=== PATIENT | male | born 1965 | race Caucasian/White ===

== ENCOUNTER 2016-11-24 13:52 | Emergency (ER) | payer MEDICARE, MEDICAID ==
[~2016-11-24] VITALS: Ht 182.9 cm; Wt 116.6 kg
[~2016-11-24 13:52] MED LIST: 0.92DISP2 IV; AZIT250T6 PO; BLOO-1207 MC; CEFT1FRO2 IV; DEXT4TAB PO; ENOX40DI3 SQ; FAMO20VI3 IV; HALO5VIA2 IJ; IPRA3AMP NEB; OLAN5TAB9 PO
[2016-11-24 14:15] VITALS: BP 127/74
--- NOTE | 2016-11-24 14:43 | PHYS DOC ---
Past Medical History Past Medical History: Asthma, Bipolar, Other Additional Past Medical Histor: "MILD MENTAL RETARDATION", dysphagia Past Surgical History: Other Additional Past Surgical Histo: cleft lip/palat, tracheotomy(taken down), feeding tube placement Alcohol Use: None Drug Use: Other Adult General Chief Complaint Chief Complaint: GTUBE REPLACEMENT/MALFUNCTION HPI HPI 51-year-old male presenting to the emergency department desiring for his feeding tube to be taken out. He was recently discharged home from [facility] after being transferred from our hospital. He is unsure who placed his GI tube however after electronic medical record review the G-tube was placed by Dr. Sinha here at our hospital on October 022016. He denies any pain. Onset greater than one week. Location GI tract. Duration intermittent. No alleviating factors. Review of systems is negative for chest pain shortness of breath nausea vomiting diarrhea. Otherwise he is feeling better and denies any other complaints. All other review of systems is negative unless otherwise noted in history of present illness. Review of Systems Review of Systems SEE ABOVE. Allergies Allergies Allergies Coded Allergies Type Severity Reaction Last Updated Verified ibuprofen Allergy Intermediate 11/24/16 Yes Physical Exam Physical Exam Constitutional: Well developed, well nourished, no acute distress, non-toxic appearance. [] HENT: Normocephalic, atraumatic, bilateral external ears normal, oropharynx moist, no oral exudates, nose normal. [] Eyes: PERRLA, EOMI, conjunctiva normal, no discharge. Neck: Normal range of motion, no tenderness, supple, no stridor. [] Cardiovascular:Heart rate regular rhythm, no murmur Lungs & Thorax: Bilateral breath sounds clear to auscultation [] Abdomen: Abdomen is soft and nontender. G-tube in place without any evidence of overlying cellulitis. Skin: Warm, dry, no erythema, no rash. [] Back: No tenderness, no CVA tenderness. Extremities: No tenderness, no cyanosis, no clubbing, ROM intact, no edema. [] Neurologic: Alert and oriented X 3, normal motor function, normal sensory function, no focal deficits noted. [] Psychologic: Affect normal, judgement normal, mood normal. [] Current Patient Data Vital Signs Vital Signs Date Time Temp Pulse Resp B/P Pulse Ox O2 Delivery O2 Flow Rate FiO2 3/10/17 14:15 97.6 104 22 95 Room Air 97.6 EKG EKG [] Radiology/Procedures Radiology/Procedures [] Course & Med Decision Making Course & Med Decision Making Pertinent Labs and Imaging studies reviewed. (See chart for details) [] 51-year-old male presenting to the emergency department desiring of his G- tube removed. I gave him information for Dr. Sinha's office to schedule appointment. Otherwise no acute Location noted. Patient was subsequent discharged home in stable condition. Dragon Disclaimer Dragon Disclaimer This electronic medical record was generated, in whole or in part, using a voice recognition dictation system. Departure Departure Impression: Primary Impression: Gastrointestinal tube present Disposition: HOME, SELF-CARE Condition: STABLE Referrals: NO PCP (PCP) ELI SINHA MD Patient Instructions: Care of a Feeding Tube Site Additional Instructions: Follow-up with Dr. Sinha. You may call [phone] to make an appointment. Thank you for allowing us to participate in your care today. Followup as above. If you do not have a primary care provider you can ask for a list of our primary care providers. Return to the emergency department you have any new or concerning findings. This should be evaluated by the primary care physician and any necessary consulting services for continued management within a few days after discharge. Return to emergency room if you have any new or concerning symptoms including but not limited to fever, chills, nausea, vomiting, intractable pain, any new rashes, chest pain, shortness of air, uncontrolled bleeding, difficulty breathing, and/or vision loss. SONU DAILY MD Nov 24, 2016 14:43
== END 2016-11-24 14:49 | disposition home or self-care (01) ==
LOC: ER 13:52
DX: Z93.1 Gastrostomy status (principal); J45.909 Unspecified asthma, uncomplicated; F31.9 Bipolar disorder, unspecified; F70 Mild intellectual disabilities; Z88.6 Allergy status to analgesic agent
CPT/HCPCS: 99281

== ENCOUNTER → 2016-12-19 | Day surgery (SDC) | payer MEDICARE, MEDICAID ==
[~2016-12-19] MED LIST changes: +FENTANYL PF 100 MCG/2 ML VIAL. IV PRN; +HYDROMORPHONE 2 MG/ML VIAL. IV PRN; +IV RINGERS,LACTATED 1000ML 1,000 ML IV SCH; +LEVE500T6 PO; +LIDOCAINE 1% 1 ML SYRINGE. ID PRN; +LIDOCAINE 2% PF Vial for OR 5 ML VIAL. ONE; +MORPHINE SULFATE 2 MG/ML DISP.SYRIN. IV PRN; +OMEP20CA9 PO; +ONDANSETRON PF 4 MG/2 ML VIAL. IV PRN; +PROCHLORPERAZINE 10 MG/2 ML VIAL. IV PRN; +PROPOFOL 0 ML IV ONE; +PROPOFOL 20 ML IV ONE; +QUET200T PO
--- NOTE | 2016-12-19 08:18 | PDOC1 ---
HISTORY & PHYSICAL H&P Jorge Alberto Matute [id number] 1965 11/29/2016 03:20 PM 09/[address] [facility] OUR PATIENTS COME FIRST [address] [place] [address]. [phone] Patient: Jorge Alberto Matute Date of : 1965 Date: 11/29/2016 3:20 PM Visit Type: Office Visit This 51 year old male presents for Peg-tube removal. History of Present Illness: 1. Peg-tube removal Patient came to the office for evaluation for removal of PEG tube. Patient has been eating well and has not used the PEG tube for more then 2 weeks. Patient requested the tube to be removed. INTAKE COMMENTS: Intake Comments: Nurse Note: the pt is here today to discuss the removal of his peg-tube that was placed in September, the pt hasn't used the feeding tube in about 2.5 weeks. He states that he is eating and swallowing okay. PROBLEM LIST: Problem Description Onset Date Chronic Notes Bipolar 1 disorder 11/29/2016 Y PAST MEDICAL/SURGICAL HISTORY (Detailed) Disease/disorder Onset Date Management Date Comments Cleft pallet repair Asthma COPD Medications (Active): Started Medication Directions Instruction Stopped haloperidol 0.5 mg tablet take 1 tablet by oral route 2 times every day levetiracetam 500 mg tablet take 1 tablet by oral route 2 times every day quetiapine 200 mg tablet take 1 tablet by oral route 2 times every day quetiapine 50 mg tablet take 1 tablet by oral route 2 times every bedtime valproic acid (as sodium salt) 250 mg/5 mL oral solution take 5 milliliter by oral route every 8 hours zolpidem 5 mg tablet take 1 Tablet by oral route every day at bedtime Allergies: Ingredient Reaction Medication Name Comment IBUPROFEN REVIEW OF SYSTEMS System Neg/Pos Details Constitutional Negative Chills, fever, malaise and weight loss. ENMT Negative Sore throat. Eyes Negative Double vision. Respiratory Negative Dyspnea and wheezing. Cardio Negative Chest pain and irregular heartbeat/palpitations. GI Positive See HPI. GI Negative See HPI. Negative Dysuria and hematuria. Endocrine Negative Cold intolerance and heat intolerance. Psych Negative Anxiety. Integumentary Negative Hives and rash. MS Negative Joint pain. Delta/Lymph Negative Easy bleeding and easy bruising. Allergic/Immuno Negative Food allergies. VITAL SIGNS Time BP mm/Hg Pulse /min Resp /min Temp F Ht ft Ht in Ht cm Wt lb Wt kg BMI kg/ m2 BSA m2 O2 Sat% 3:25 PM 138/74 115 97.9 5.0 8.00 172.72 253.20 114.850 38.50 95 Time Measured by 3:25 PM Jinny Wright PHYSICAL EXAM: Exam Findings Details Constitutional Normal Well developed. Eyes Normal Conjunctiva - Right: Normal, Left: Normal. Sclera - Right: Normal, Left: Normal. Nasopharynx Normal Lips/teeth/gums - Normal. Neck Exam Normal Inspection - Normal. Thyroid gland - Normal. Respiratory Normal Inspection - Normal. Auscultation - Normal. Cardiovascular Normal Regular rate and rhythm. No murmurs, gallops, or rubs. Vascular Normal Pulses - Carotids: Normal, Femoral: Normal, Dorsalis pedis: Normal. Abdomen Normal Inspection - Normal. Anterior palpation - No guarding. No abdominal tenderness. No hepatic enlargement. No splenic enlargement. No hernia. No ascites. Skin Normal Inspection - Normal. Extremity Normal No edema. Psychiatric * Oriented to time, place, person and situation. Psychiatric Normal Appropriate mood and effect. The patient was checked out at 3:26 PM by Jinny Wright. Assessment/Plan # Detail Type Description 1. Assessment Malfunction of gastrostomy tube (K94.23). Patient Plan schedule EGD at [facility] Electronically signed by: Eli Vogt MD 11/29/2016 03:30 PM Document generated by: Eli Vogt 11/29/2016 03:30 PM Donna Redding MD, Family Practice; Jorge Alberto Costa MD Internal Medicine; Onelia Barajas MD, Internal Medicine; Marty Vogt MD Internal Medicine; Eli oVgt MD, Gastroenterology; Ryan Varela MD, Rheumatology, S. Gregory Wells, Physical Medicine/Rehab Freya Hawkins APRN ------ 12/19/16 Patient seen and examined. No change in H&P ELI VOGT MD Dec 19, 2016 08:18
--- NOTE | 2016-12-19 09:25 | PDOC4 ---
GI OP Report - Dr. Sinha Date/Time DATE: 12/19/16 TIME: 09:24 Attending Physician Hal Sinha MD Referring Physician Indications Remove PEG tube (no longer needed) Pre-Op See the Anesthesia note for documentation of the administered medications Procedures Upper GI endoscopy+PEG removal Findings - Normal esophagus. - Gastrostomy present. - Normal examined duodenum. - The PEG was cut externally, grasped, and removed with the scope because it was no longer necessary. - No specimens collected. Plan - Discharge patient to home. - Patient has a contact number available for emergencies. The signs and symptoms of potential delayed complications were discussed with the patient. Return to normal activities tomorrow. Written discharge instructions were provided to the patient. - Resume regular diet. - Continue present medications. - Return to my office as needed. HAL SINHA MD Dec 19, 2016 09:25
[2016-12-19 09:45] VITALS: BP 124/76
== END | disposition home or self-care (01) ==
LOC: ENDOS 08:00
PROVIDERS: ATTEND Internal Medicine Gastroenterology
DX: K94.23 Gastrostomy malfunction (principal); Z93.1 Gastrostomy status; Z43.1 Encounter for attention to gastrostomy; J45.909 Unspecified asthma, uncomplicated; J44.9 Chronic obstructive pulmonary disease, unspecified
CPT/HCPCS: 43247; J2704

== ENCOUNTER → 2017-01-22 | Outpatient (CLI) | payer MEDICARE, MEDICAID ==
[2016-12-19 09:45] VITALS: BP 124/76
[~2017-01-22] MED LIST changes: -FENTANYL PF 100 MCG/2 ML VIAL. IV PRN; -HYDROMORPHONE 2 MG/ML VIAL. IV PRN; -IV RINGERS,LACTATED 1000ML 1,000 ML IV SCH; -LIDOCAINE 1% 1 ML SYRINGE. ID PRN; -LIDOCAINE 2% PF Vial for OR 5 ML VIAL. ONE; -MORPHINE SULFATE 2 MG/ML DISP.SYRIN. IV PRN; -ONDANSETRON PF 4 MG/2 ML VIAL. IV PRN; -PROCHLORPERAZINE 10 MG/2 ML VIAL. IV PRN; -PROPOFOL 0 ML IV ONE; -PROPOFOL 20 ML IV ONE
--- NOTE | 2017-01-22 10:53 | KCIC ---
PROCEDURE Barium esophagram HISTORY Dysphagia, previous tracheostomy and intubation COMPARISON None FINDINGS Barium esophagram was performed. Exam is somewhat limited as patient could only take small swallows of barium. Patient also had difficulty both standing and could not tolerate recumbent prone oblique position. Course and caliber of the esophagus is within normal limits. No definitive esophageal mucosal abnormality was identified. There is normal peristalsis. No hiatal hernia or stricture was demonstrated. Fluoroscopy time: 1 minutes 12 seconds, 19 images IMPRESSION No significant abnormality was identified, limitations of exam as stated. Electronically signed by: Andrew Groves MD (January 22, 2017 10:48:01)
== END | disposition home or self-care (01) ==
LOC: KCIC 07:55
PROVIDERS: ATTEND Family Medicine
DX: R13.10 Dysphagia, unspecified (principal)
CPT/HCPCS: 74220